=== PATIENT | female | born 1940 | race Caucasian/White ===

== ENCOUNTER 2019-11-06 09:07 | Outpatient (CLI) | payer MEDICARE, OTHER, SELFPAY ==
--- NOTE | 2019-11-06 20:35 | ONC FU_ITS ---
Dr. Montemayor Patient Follow-Up Note Patient: Jeimy Brownlee Unit #: [id number]: [id number] Dicatated By: Jonathan Montemayor M.D.Date of Visit:Nov 06, 2019 Onc Med Follow-up/Prog Note Chief Complaint: Polycythemia. 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 In February 2016 she was found on a routine followup to have a significantly elevated platelet count at 763,000. The remainder of her CBC was significant for normal hemoglobin at 12.9 g with hematocrit 40.2%. The red cell indices were in the low normal range. The white blood cell count was mildly elevated at 12,600 with the diff showing 68% segs, 21% lymphs, 6% monocytes, 4% eosinophils, and 1% basophils. I had seen her initially on 04/14/2016. At that time her CBC showed hemoglobin mildly elevated at 14.6 g with hematocrit 45%. The white blood cell count was 13,700 and the platelet count was 938,000. The red cell indices were at the lower limit of normal. Her chemistry studies did show evidence of iron deficiency with serum iron low at 20 mcg/dL and transferrin saturation 4.2%. The erythropoietin level was low at 5 mIU/mL. The JAK2 V617F mutation was positive at 28.4%. Overall, the findings were consistent with polycythemia rubra vera with iron deficiency. She then began treatment with hydroxyurea in April 2016. She had a good response, and she tolerated it well. I had last seen her for a follow-up visit in May 2017. At that point her blood counts remained adequately controlled and she appeared to be doing well clinically. For reasons unclear to me she was then lost to follow-up. Her other medical illnesses include hypertension, hyperlipidemia, GERD, degenerative arthritis, and osteoporosis. She also has chronic insomnia, and she has a history of superficial bladder cancer. She has a history of smoking 1 pack of cigarettes daily for 50 years. INTERIM HISTORY: She has been seen by Amelia Ferrara at the [facility] on 11/01/2019. Her CBC at that time showed significantly elevated hemoglobin at 18.4 g with hematocrit 56.8%. The white blood cell count was elevated at 17,000 and the platelet count was significantly elevated at 1,503,000. Comprehensive metabolic profile showed normal renal function with BUN 15 and creatinine 0.68 mg/dL. Bilirubin and liver enzymes were normal. She is seen now for a follow-up visit. She has very limited activity, as she spends most of her time just sitting in her chair. Her ECOG score is 3. Her appetite has not been good, and her weight is down 18 pounds by our scale. Her son indicates that she has been eating a little since she started taking pantoprazole. She has not had fever or night sweats. She has not had sore mouth, she has had a little sore spot on the left side of her throat. She does not complain of shortness of breath, cough, or chest pain. She is still smoking 1 pack of cigarettes daily. She does complain that her stomach short, and she says she has terrible constipation. Bladder function has been okay. She still follows with Dr. Zapata for her superficial bladder cancer. She has some arthritis pain in her hands, and she also reports having some numbness/tingling in her hands. Medications: Citalopram Hydrobromide 1 (20 mg) Tablet Oral daily, Lisinopril 1 (10 mg) Tablet Oral daily, Pantoprazole Sodium 1 (40 mg) Tablet, enteric coated Oral daily Allergies: No Known Allergies. Review of Systems: Constitutional - She is not doing any activity at home. She is mainly sitting in her chair. Her appetite is not good. She has lost weight. No fever, night sweats, or hot flashes. ECOG score is 3, ENMT - No sinus congestion/drainage. No mouth sores. She has a little bit of sore throat on the left side. No difficulty swallowing, Hematologic/Lymphatic - She bruises easily, Respiratory - No shortness of breath. No cough. No pleuritic pain or hemoptysis, Cardiovascular - No angina pain. No palpitations, Gastrointestinal - No nausea or vomiting. She has had burning in her stomach, and she recently started taking pantoprazole. She has chronic constipation. No blood in the stool or black stools, Genitourinary (F) - No dysuria or hematuria. No urinary frequency. No urgency or incontinence, Musculoskeletal - She has arthritis pain in her hands, Integumentary - No skin rash, Neurologic - She has occasional headache. No dizziness. She has numbness and tingling in her hands. No other focal neurologic symptoms, Psychiatric - She is taking citalopram for her anxiety and depression. No insomnia. Vital Signs: Performed on Nov 06, 2019 09:42 Height - 66.00 in Weight - 100.0 lbs (LOW) BSA - 1.49 sq.m BMI - 16.14 (LOW) Temperature - 99.0 F (HIGH) Pulse - 74 /min Respiration - 18 /min BP - 137/70 mm(hg) O2 Sat - 96 % Pain - 0 Physical Examination: Constitutional - She appears chronically ill, Eyes - Sclerae nonicteric. Conjunctivae clear, ENMT - No lesions noted in the oral cavity, Hematologic/Lymphatic - No cervical, clavicular, or axillary adenopathy, Respiratory - Lungs are clear with diminished air movement bilaterally, Cardiovascular - Heart rhythm is regular with some premature beats. There is no murmur, gallop, or rub noted, Abdomen - Soft. Liver and spleen are not enlarged. There is no abdominal mass or ascites noted and there is no inguinal adenopathy, Extremities - No edema, Neurologic - No focal neurologic deficits noted. Impression: 1. Patient with polycythemia rubra vera, JAK2 mutation positive. She had previously been doing well on treatment with hydroxyurea. 2. As of her follow-up visit in May 2017 she was doing well clinically, she was then lost to follow-up. 3. She has a history of superficial bladder cancer with multiple previous TURBT procedures and intravesical BCG. Her other medical illnesses include: 4. Hypertension. 5. Hyperlipidemia. 6. GERD. 7. Degenerative arthritis/degenerative disease of the spine. 8. Osteoporosis. 9. Chronic insomnia. 10. Depression. 11. Nicotine dependence (cigarettes). She has developed significantly elevated blood counts since she has been off treatment. She also has had a very significant decline in her performance status. It is uncertain to what extent that may be due to the polycythemia or to other factors, particularly to GERD/gastritis. Plan: She will be phlebotomized today. She will restart hydroxyurea 500 mg twice daily. Her blood counts will be monitored weekly. She will be scheduled for a followup visit in 4 weeks. Signed By: Jonathan Montemayor M.D. <<Signature on File>>
== END 2019-11-06 09:08 | disposition home or self-care (01) ==
LOC: ONCMED 09:14
PROVIDERS: PCP Nurse Practitioner Family; Visit Provider Internal Medicine Medical Oncology
DX: D45 Polycythemia vera (principal); I10 Essential (primary) hypertension; E78.5 Hyperlipidemia, unspecified; K21.9 Gastro-esophageal reflux disease without esophagitis; M19.90 Unspecified osteoarthritis, unspecified site; M81.0 Age-related osteoporosis without current pathological fracture; F51.04 Psychophysiologic insomnia; F41.8 Other specified anxiety disorders; F17.210 Nicotine dependence, cigarettes, uncomplicated; Z85.51 Personal history of malignant neoplasm of bladder; Z79.899 Other long term (current) drug therapy
CPT/HCPCS: 99195; 99214

== ENCOUNTER 2019-12-05 08:02 | Outpatient (CLI) | payer MEDICARE, OTHER, SELFPAY ==
[2019-12-05 09:04] LABS: Alanine Aminotransferase 12 U/L (0-33); Alkaline Phosphatase 91 IU/L (35-105); Anion Gap 14.4 (5-19); Aspartate Amino Transferase 23 U/L (0-32); Blood Urea Nitrogen 14 mg/dL (8-23); Calcium 9.2 mg/dL (8.5-10.5); Carbon Dioxide 25 mmol/L (22-29); Chloride 106 mmol/L (98-107); Globulin 3.3 g/dL (1.3-4.6); Glucose 109 mg/dL (65-115); Lactate Dehydrogenase 191 U/L (135-214); Osmolality Calculated 289 mOsm/kg (285-295); Potassium 4.4 mmol/L (3.5-5.1); Sodium 141 mmol/L (136-145); Total Bilirubin 0.2 mg/dL (0.15-1.2); Total Protein 7.3 g/dL (6.6-8.7)
--- NOTE | 2019-12-06 06:57 | ONC FU_ITS ---
Dr. Montemayor Patient Follow-Up Note Patient: Jeimy Brownlee Unit #: [id number]: 1940 Dicatated By: Jonathan Montemayor M.D.Date of Visit:Dec 05, 2019 Onc Med Follow-up/Prog Note Chief Complaint: Polycythemia. 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 In February 2016 she was found on a routine followup to have a significantly elevated platelet count at 763,000. The remainder of her CBC was significant for normal hemoglobin at 12.9 g with hematocrit 40.2%. The red cell indices were in the low normal range. The white blood cell count was mildly elevated at 12,600 with the diff showing 68% segs, 21% lymphs, 6% monocytes, 4% eosinophils, and 1% basophils. I had seen her initially on 04/14/2016. At that time her CBC showed hemoglobin mildly elevated at 14.6 g with hematocrit 45%. The white blood cell count was 13,700 and the platelet count was 938,000. The red cell indices were at the lower limit of normal. Her chemistry studies did show evidence of iron deficiency with serum iron low at 20 mcg/dL and transferrin saturation 4.2%. The erythropoietin level was low at 5 mIU/mL. The JAK2 V617F mutation was positive at 28.4%. Overall, the findings were consistent with polycythemia rubra vera with iron deficiency. She then began treatment with hydroxyurea in April 2016. She had a good response, and she tolerated it well. I had last seen her for a follow-up visit in May 2017. At that point her blood counts remained adequately controlled and she appeared to be doing well clinically. For reasons unclear to me she was then lost to follow-up. Her other medical illnesses include hypertension, hyperlipidemia, GERD, degenerative arthritis, and osteoporosis. She also has chronic insomnia, and she has a history of superficial bladder cancer. She has a history of smoking 1 pack of cigarettes daily for 50 years. INTERIM HISTORY: She was seen by Amelia Ferrara at the [facility] on 11/01/2019. Her CBC at that time showed significantly elevated hemoglobin at 18.4 g with hematocrit 56.8%. The white blood cell count was elevated at 17,000 and the platelet count was significantly elevated at 1,503,000. Comprehensive metabolic profile showed normal renal function with BUN 15 and creatinine 0.68 mg/dL. Bilirubin and liver enzymes were normal. I have been seen her for a follow-up visit on 11/06/2019. She was phlebotomized, and she then restarted hydroxyurea at 500 mg twice daily. Her repeat CBC yesterday showed hemoglobin down somewhat, though still elevated, at 16.3 g with hematocrit 51.2%. The white blood cell count was 10,600 and the platelet count was 1,109,000. She did have another phlebotomy. She is seen for a follow-up visit. She has been feeling pretty good. She still has limited activity tolerance, but it has improved somewhat. Her ECOG score is 2. She still does not have much appetite, and her weight is down another 3 pounds. She does not have fever or night sweats. She has had no mouth sores. She has no shortness of breath, cough, or chest pain. She has had a little nausea, and she has had some constipation. She has no complaints. She has joint pain, mainly in her hands and right knee. She has no focal neurologic symptoms. Medications: Citalopram Hydrobromide 1 (20 mg) Tablet Oral daily, Hydroxyurea 1 Capsule (of 500 mg) Oral b.i.d., Lisinopril 1 (10 mg) Tablet Oral daily, Pantoprazole Sodium 1 (40 mg) Tablet, enteric coated Oral daily Allergies: No Known Allergies. Review of Systems: Constitutional - She has been feeling pretty good. She still has limited activity, but it is improving. She does not have much appetite. Her weight is down another 3 pounds. She does not have fever or night sweats. ECOG score is 2, ENMT - No sinus congestion/drainage. No mouth sores. No sore throat or difficulty swallowing, Hematologic/Lymphatic - No abnormal bruising or bleeding, Respiratory - No shortness of breath. No cough. No pleuritic pain or hemoptysis, Cardiovascular - No angina pain. No palpitations, Gastrointestinal - She has had a little bit of nausea, but no vomiting. No heartburn or acid reflux. She has had some constipation. No blood in the stool or black stools, Genitourinary (F) - No dysuria or hematuria. No urinary frequency. No urgency or incontinence, Musculoskeletal - She has some joint pain, mainly in her hands and right knee, Integumentary - No skin rash, Neurologic - No headache. She has occasional orthostatic lightheadedness. No numbness or tingling. No other focal neurologic symptoms, Psychiatric - She has some anxiety/depression. No insomnia. Vital Signs: Performed on Dec 05, 2019 10:06 Height - 66.00 in Weight - 96.4 lbs (LOW) BSA - 1.47 sq.m BMI - 15.56 (LOW) Temperature - 97.8 F (LOW) Pulse - 76 /min Respiration - 18 /min BP - 157/73 mm(hg) (HIGH) O2 Sat - 97 % Pain - 0 Physical Examination: Constitutional - She appears chronically ill, Eyes - Sclerae nonicteric. Conjunctivae clear, ENMT - No lesions noted in the oral cavity, Hematologic/Lymphatic - No cervical, clavicular, or axillary adenopathy, Respiratory - Lungs are clear with diminished air movement bilaterally, Cardiovascular - Heart rhythm is regular. There is no murmur, gallop, or rub noted, Abdomen - Thin but soft. Liver and spleen are not enlarged. There is no abdominal mass or ascites noted and there is no inguinal adenopathy, Extremities - No edema, Neurologic - No focal neurologic deficits noted. Lab/Imaging: Test performed on Dec 05, 2019 08:16 LDH (Total) 191 U/L Sodium 141 mmol/L Potassium 4.4 mmol/L Chloride 106 mmol/L CO2 25 mmol/L Anion Gap 14.4 BUN 14 mg/dL Creatinine 0.6 mg/dL Cr Clearance (Est) 52.48 mL/min Glucose 109 mg/dL Calcium 9.2 mg/dL Protein, Total 7.3 g/dL Albumin 4.0 g/dL Globulin 3.3 g/dL Bilirubin, Total 0.2 mg/dL ALT (SGPT) 12 U/L AST (SGOT) 23 U/L Alkaline Phosphatase 91 IU/L Test performed on Dec 04, 2019 21:18 WBC 10.6 10^9/L RBC 6.05 10^12/L HGB 16.3 g/dL HCT 51.2 % MCV 84.6 fl MCH 26.9 pg MCHC 31.8 g/dL RDW 25.5 % Platelet Count 1109 10^9/L MPV 9.4 fL Neutrophils (Gran) 6.56 10^9/L Lymphocytes 2.84 10^9/L Monocytes .75 10^9/L Eosinophils .22 10^9/L Basophils .15 10^9/L Manual Lymphocytes 26.8 % Manual Monocytes 7.1 % Manual Eosinophils 2.1 % Manual Basophils 1.4 % Impression: 1. Patient with polycythemia rubra vera, JAK2 mutation positive. She had previously been doing well on treatment with hydroxyurea. 2. As of her follow-up visit in May 2017 she was doing well clinically, but she was then lost to follow-up, and she opted to stop her treatment. 3. She has a history of superficial bladder cancer with multiple previous TURBT procedures and intravesical BCG. Her other medical illnesses include: 4. Hypertension. 5. Hyperlipidemia. 6. GERD. 7. Degenerative arthritis/degenerative disease of the spine. 8. Osteoporosis. 9. Chronic insomnia. 10. Depression. 11. Nicotine dependence (cigarettes). She developed significantly elevated blood counts after stopping her treatment. She also had a very significant decline in her performance status. As of October 2019 her blood counts had become significantly elevated. Following her visit on 11/06/2019 she restarted phlebotomies, and she also restarted hydroxyurea at 500 mg twice daily. Since then she has had some improvement in her blood counts and in her clinical status, though she still has limited activity tolerance and she continues to have anorexia/weight loss. Plan: She will continue hydroxyurea 500 mg twice daily. Blood counts will be monitored every 2 weeks, and she will be phlebotomized again as needed. I will see her for a follow-up visit in 4 weeks. In the meantime, she is encouraged to supplement her caloric intake with at least 2 Ensures daily. Signed By: Jonathan Montemayor M.D. <<Signature on File>>
== END 2019-12-05 08:03 | disposition home or self-care (01) ==
LOC: ONCMED 08:10
PROVIDERS: PCP Nurse Practitioner Family; Visit Provider Internal Medicine Medical Oncology
DX: D45 Polycythemia vera (principal); D47.3 Essential (hemorrhagic) thrombocythemia; F51.04 Psychophysiologic insomnia; F32.9 Major depressive disorder, single episode, unspecified; K21.9 Gastro-esophageal reflux disease without esophagitis; E78.5 Hyperlipidemia, unspecified; I10 Essential (primary) hypertension; M81.0 Age-related osteoporosis without current pathological fracture; M47.9 Spondylosis, unspecified; F17.210 Nicotine dependence, cigarettes, uncomplicated
CPT/HCPCS: 80053; 83615; 99214

== ENCOUNTER 2020-01-02 10:28 | Outpatient (CLI) | payer MEDICARE, OTHER, SELFPAY ==
--- NOTE | 2020-01-05 14:18 | ONC FU_ITS ---
Dr. Montemayor Patient Follow-Up Note Patient: Jeimy Brownlee Unit #: [id number]: 1940 Dicatated By: Jonathan Montemayor M.D.Date of Visit:Jan 02, 2020 Onc Med Follow-up/Prog Note Chief Complaint: Polycythemia. 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 In February 2016 she was found on a routine followup to have a significantly elevated platelet count at 763,000. The remainder of her CBC was significant for normal hemoglobin at 12.9 g with hematocrit 40.2%. The red cell indices were in the low normal range. The white blood cell count was mildly elevated at 12,600 with the diff showing 68% segs, 21% lymphs, 6% monocytes, 4% eosinophils, and 1% basophils. I had seen her initially on 04/14/2016. At that time her CBC showed hemoglobin mildly elevated at 14.6 g with hematocrit 45%. The white blood cell count was 13,700 and the platelet count was 938,000. The red cell indices were at the lower limit of normal. Her chemistry studies did show evidence of iron deficiency with serum iron low at 20 mcg/dL and transferrin saturation 4.2%. The erythropoietin level was low at 5 mIU/mL. The JAK2 V617F mutation was positive at 28.4%. Overall, the findings were consistent with polycythemia rubra vera with iron deficiency. She then began treatment with hydroxyurea in April 2016. She had a good response, and she tolerated it well. I had last seen her for a follow-up visit in May 2017. At that point her blood counts remained adequately controlled and she appeared to be doing well clinically. For reasons unclear to me she was then lost to follow-up. Her other medical illnesses include hypertension, hyperlipidemia, GERD, degenerative arthritis, and osteoporosis. She also has chronic insomnia, and she has a history of superficial bladder cancer. She has a history of smoking 1 pack of cigarettes daily for 50 years. INTERIM HISTORY: She was seen by Amelia Ferrara at the [facility] on 11/01/2019. Her CBC at that time showed significantly elevated hemoglobin at 18.4 g with hematocrit 56.8%. The white blood cell count was elevated at 17,000 and the platelet count was significantly elevated at 1,503,000. Comprehensive metabolic profile showed normal renal function with BUN 15 and creatinine 0.68 mg/dL. Bilirubin and liver enzymes were normal. I had seen on 11/06/2019. She was phlebotomized, and she then restarted hydroxyurea at 500 mg twice daily. Her repeat CBC on 12/04/2019 showed hemoglobin down somewhat, though still elevated, at 16.3 g with hematocrit 51.2%. The white blood cell count was 10,600 and the platelet count was 1,109,000. She did have another phlebotomy. She continued hydroxyurea 500 mg bid. She is seen for a follow-up visit. She is feeling much better generally. She has improved energy and activity tolerance, and she also is eating more now. Her ECOG score is 1. She does not have fever or night sweats. She has had no mouth sores. She has no shortness of breath, cough, or chest pain. She currently has no GI or complaints. She does have some joint pain, mainly in the hands. She has no focal neurologic symptoms. Medications: Citalopram Hydrobromide 1 (20 mg) Tablet Oral daily, Hydroxyurea 1 Capsule (of 500 mg) Oral b.i.d., Lisinopril 1 (10 mg) Tablet Oral daily, Pantoprazole Sodium 1 (40 mg) Tablet, enteric coated Oral daily Allergies: No Known Allergies. Review of Systems: Constitutional - Her energy is better. Appetite also has improved. No fever, night sweats, or hot flashes. ECOG score is 1, ENMT - No sinus congestion/drainage. No mouth sores. No sore throat or difficulty swallowing, Hematologic/Lymphatic - No abnormal bruising or bleeding, Respiratory - No shortness of breath. No cough. No pleuritic pain or hemoptysis, Cardiovascular - No angina pain. No palpitations, Gastrointestinal - No nausea or vomiting. Her acid reflux is adequately managed. No diarrhea or constipation. No blood in the stool or black stools, Genitourinary (F) - No dysuria or hematuria. No urinary frequency. No urgency or incontinence, Musculoskeletal - She has joint pain, mainly in the hands, Integumentary - No skin rash, Neurologic - No headache. She occasionally has dizziness. No numbness or tingling. No other focal neurologic symptoms, Psychiatric - No anxiety or depression. No insomnia. Vital Signs: Performed on Jan 02, 2020 10:43 Height - 66.00 in Weight - 98.6 lbs (HIGH) BSA - 1.48 sq.m BMI - 15.91 (LOW) Temperature - 97.9 F (LOW) Pulse - 83 /min Respiration - 16 /min BP - 110/58 mm(hg) O2 Sat - 98 % Pain - 0 Physical Examination: Constitutional - She looks better, Eyes - Sclerae nonicteric. Conjunctivae clear, ENMT - No lesions noted in the oral cavity, Hematologic/Lymphatic - No cervical, clavicular, or axillary adenopathy, Respiratory - Lungs are clear with diminished air movement bilaterally, Cardiovascular - Heart rhythm is regular. There is no murmur, gallop, or rub noted, Abdomen - Soft. Liver and spleen are not enlarged. There is no abdominal mass or ascites noted and there is no inguinal adenopathy, Extremities - No edema, Neurologic - No focal neurologic deficits noted. Lab/Imaging: Test performed on Jan 01, 2020 13:02 WBC 7.9 10^9/L RBC 4.97 10^12/L HGB 14.6 g/dL HCT 44.0 % MCV 88.5 fl MCH 29.4 pg MCHC 33.2 g/dL Platelet Count 749 10^9/L MPV 9.6 fL Neutrophils (Gran) 5.29 10^9/L Lymphocytes 2.03 10^9/L Monocytes 0.45 10^9/L Eosinophils 0.07 10^9/L Basophils 0.04 10^9/L Manual Lymphocytes 25.7 % Manual Monocytes 5.7 % Manual Eosinophils 0.9 % Manual Basophils 0.5 % Impression: 1. Patient with polycythemia rubra vera, JAK2 mutation positive. She had previously been doing well on treatment with hydroxyurea. 2. As of her follow-up visit in May 2017 she was doing well clinically, but she was then lost to follow-up, and she opted to stop her treatment. 3. She has a history of superficial bladder cancer with multiple previous TURBT procedures and intravesical BCG. Her other medical illnesses include: 4. Hypertension. 5. Hyperlipidemia. 6. GERD. 7. Degenerative arthritis/degenerative disease of the spine. 8. Osteoporosis. 9. Chronic insomnia. 10. Depression. 11. Nicotine dependence (cigarettes). She developed significantly elevated blood counts after stopping her treatment. She also had a very significant decline in her performance status. As of October 2019 her blood counts had become significantly elevated. Following her visit on 11/06/2019 she was phlebotomized, and she also restarted hydroxyurea at 500 mg twice daily. During follow-up her blood counts had decreased gradually, though she did require phlebotomy again on 12/05/2019. At this point she has feeling much better. Her platelet count is still mildly elevated, though significantly improved. Her hematocrit is slightly above target, which I think is acceptable given her underlying COPD. Plan: She will continue hydroxyurea 500 mg twice daily. For now I will continue to monitor her blood count every 2 weeks, and she will be phlebotomized again as needed. I will tentatively plan a follow-up visit in 3 months. Signed By: Jonathan Montemayor M.D. <<Signature on File>>
== END 2020-01-02 10:29 | disposition home or self-care (01) ==
LOC: ONCMED 10:34
PROVIDERS: PCP Nurse Practitioner Family; Visit Provider Internal Medicine Medical Oncology
DX: D45 Polycythemia vera (principal); I10 Essential (primary) hypertension; E78.5 Hyperlipidemia, unspecified; K21.9 Gastro-esophageal reflux disease without esophagitis; M19.90 Unspecified osteoarthritis, unspecified site; M81.0 Age-related osteoporosis without current pathological fracture; F51.04 Psychophysiologic insomnia; Z85.51 Personal history of malignant neoplasm of bladder; F17.210 Nicotine dependence, cigarettes, uncomplicated; Z79.899 Other long term (current) drug therapy
CPT/HCPCS: 99214

== ENCOUNTER 2020-04-09 13:02 | Outpatient (CLI) | payer MEDICARE, OTHER, SELFPAY ==
--- NOTE | 2020-04-12 12:56 | ONC FU_ITS ---
Dr. Montemayor Patient Follow-Up Note Patient: Jeimy Brownlee Unit #: [id number]: 1940 Dicatated By: Jonathan Montemayor M.D.Date of Visit:Apr 09, 2020 Onc Med Follow-up/Prog Note Chief Complaint: Polycythemia. 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 In February 2016 she was found on a routine followup to have a significantly elevated platelet count at 763,000. The remainder of her CBC was significant for normal hemoglobin at 12.9 g with hematocrit 40.2%. The red cell indices were in the low normal range. The white blood cell count was mildly elevated at 12,600 with the diff showing 68% segs, 21% lymphs, 6% monocytes, 4% eosinophils, and 1% basophils. I had seen her initially on 04/14/2016. At that time her CBC showed hemoglobin mildly elevated at 14.6 g with hematocrit 45%. The white blood cell count was 13,700 and the platelet count was 938,000. The red cell indices were at the lower limit of normal. Her chemistry studies did show evidence of iron deficiency with serum iron low at 20 mcg/dL and transferrin saturation 4.2%. The erythropoietin level was low at 5 mIU/mL. The JAK2 V617F mutation was positive at 28.4%. Overall, the findings were consistent with polycythemia rubra vera with iron deficiency. She then began treatment with hydroxyurea in April 2016. She had a good response, and she tolerated it well. I had last seen her for a follow-up visit in May 2017. At that point her blood counts remained adequately controlled and she appeared to be doing well clinically. For reasons unclear to me she was then lost to follow-up. Her other medical illnesses include hypertension, hyperlipidemia, GERD, degenerative arthritis, and osteoporosis. She also has chronic insomnia, and she has a history of superficial bladder cancer. She has a history of smoking 1 pack of cigarettes daily for 50 years. INTERIM HISTORY: She was seen by Amelia Ferrara at the [facility] on 11/01/2019. Her CBC at that time showed significantly elevated hemoglobin at 18.4 g with hematocrit 56.8%. The white blood cell count was elevated at 17,000 and the platelet count was significantly elevated at 1,503,000. Comprehensive metabolic profile showed normal renal function with BUN 15 and creatinine 0.68 mg/dL. Bilirubin and liver enzymes were normal. I had seen on 11/06/2019. She was phlebotomized, and she then restarted hydroxyurea at 500 mg twice daily. Her repeat CBC on 12/04/2019 showed hemoglobin down somewhat, though still elevated, at 16.3 g with hematocrit 51.2%. The white blood cell count was 10,600 and the platelet count was 1,109,000. She did have another phlebotomy. She continued hydroxyurea 500 mg bid. She is seen for a follow-up visit. She has been feeling pretty good generally. She still has fatigue, but she is able to do housework now. ECOG score is 1. She has good appetite. She has no fever or night sweats. She has had no mouth sores. She has no shortness of breath, cough, or chest pain. She colonel he has no GI or complaints. She has been having constipation, but that has improved now. She has no significant joint or bone pain. She has no focal neurologic symptoms. Medications: Citalopram Hydrobromide 1 (20 mg) Tablet Oral daily, Hydroxyurea 1 Capsule (of 500 mg) Oral b.i.d., Lisinopril 1 (10 mg) Tablet Oral daily, Pantoprazole Sodium 1 (40 mg) Tablet, enteric coated Oral daily Allergies: No Known Allergies. Review of Systems: Constitutional - She has fatigue, but she is able to do some housework. Appetite is good and weight is stable. No fever, night sweats, or hot flashes. ECOG score is 1, ENMT - She has sinus congestion/drainage. No mouth sores. No sore throat or difficulty swallowing, Hematologic/Lymphatic - She has had some bruising, Respiratory - No shortness of breath. No cough. No pleuritic pain or hemoptysis, Cardiovascular - No angina pain. No palpitations, Gastrointestinal - No nausea or vomiting. No heartburn or acid reflux. She was having constipation, but that has improved. No blood in the stool or black stools, Genitourinary (F) - No dysuria or hematuria. No urinary frequency. No urgency or incontinence, Musculoskeletal - No joint or bone pain, Integumentary - No skin rash, Neurologic - No headache or dizziness. No numbness or tingling. No other focal neurologic symptoms, Psychiatric - No anxiety or depression. No insomnia. Vital Signs: Performed on Apr 09, 2020 13:20 Height - 66.00 in Weight - 97.2 lbs (LOW) BSA - 1.47 sq.m BMI - 15.69 (LOW) Temperature - 98.7 F Pulse - 94 /min Respiration - 20 /min BP - 136/69 mm(hg) O2 Sat - 98 % Pain - 0 Physical Examination: Constitutional - She looks pretty good generally, Eyes - Sclerae nonicteric. Conjunctivae clear, ENMT - No lesions noted in the oral cavity, Hematologic/Lymphatic - No cervical, clavicular, or axillary adenopathy, Respiratory - Lungs are clear with diminished air movement bilaterally, Cardiovascular - Heart rhythm is regular. There is no murmur, gallop, or rub noted, Abdomen - Soft. Liver and spleen are not enlarged. There is no abdominal mass or ascites noted and there is no inguinal adenopathy, Extremities - No edema, Neurologic - No focal neurologic deficits noted. Lab/Imaging: Test performed on Apr 08, 2020 19:00 Glucose 109 mg/dL LDH, Total 225 IU/L BUN 12 mg/dL Creatinine 0.56 mg/dL Cr Clearance (Est) 55.77 mL/min Sodium 137 mmol/L Potassium 3.9 mmol/L Chloride 105 mmol/L CO2 24.9 mmol/L Calcium 9.4 mg/dL Protein, Total 7.4 g/dL Albumin 3.2 g/dL A/G Ratio 0.8 Absolute Value Bilirubin, Total 0.4 mg/dL Alkaline Phosphatase 120 IU/L AST (SGOT) 19 IU/L ALT (SGPT) 13 IU/L WBC 7.0 10^9/L RBC 3.02 10^12/L HGB 12.4 g/dL HCT 38.4 % MCV 127.2 fl MCH 41.1 pg MCHC 32.3 g/dL RDW 68.8 % Platelet Count 528 10^9/L MPV 10.1 fL Neutrophils (Gran) 4.42 10^9/L Lymphocytes 2.01 10^9/L Monocytes 0.43 10^9/L Eosinophils 0.04 10^9/L Basophils 0.03 10^9/L Manual Lymphocytes 28.9 % Manual Monocytes 6.2 % Manual Eosinophils 0.6 % Manual Basophils 0.4 % Impression: 1. Patient with polycythemia rubra vera, JAK2 mutation positive. She had previously been doing well on treatment with hydroxyurea. 2. As of her follow-up visit in May 2017 she was doing well clinically, but she was then lost to follow-up, and she opted to stop her treatment. 3. She has a history of superficial bladder cancer with multiple previous TURBT procedures and intravesical BCG. Her other medical illnesses include: 4. Hypertension. 5. Hyperlipidemia. 6. GERD. 7. Degenerative arthritis/degenerative disease of the spine. 8. Osteoporosis. 9. Chronic insomnia. 10. Depression. 11. Nicotine dependence (cigarettes). She developed significantly elevated blood counts after stopping her treatment. She also had a very significant decline in her performance status. As of October 2019 her blood counts had become significantly elevated. Following her visit on 11/06/2019 she was phlebotomized, and she also restarted hydroxyurea at 500 mg twice daily. During follow-up her blood counts had decreased gradually, though she did require phlebotomy again on 12/05/2019. With her hydroxyurea continued at 500 mg twice daily her platelet count has now stabilized at a mildly elevated level with her white blood cell count normal and with her hemoglobin/hematocrit levels within target range. Her overall clinical status has improved significantly. Plan: She will continue hydroxyurea 500 mg twice daily. She was scheduled for a repeat CBC in 6 weeks and for a follow-up visit in 3 months. Signed By: Jonathan Montemayor M.D. <<Signature on File>>
== END 2020-04-09 13:03 | disposition home or self-care (01) ==
LOC: ONCMED 13:05
PROVIDERS: PCP Nurse Practitioner Family; Visit Provider Internal Medicine Medical Oncology
DX: D45 Polycythemia vera (principal); D47.3 Essential (hemorrhagic) thrombocythemia; I10 Essential (primary) hypertension; E78.5 Hyperlipidemia, unspecified; K21.9 Gastro-esophageal reflux disease without esophagitis; M47.9 Spondylosis, unspecified; M81.0 Age-related osteoporosis without current pathological fracture; G47.00 Insomnia, unspecified; F32.9 Major depressive disorder, single episode, unspecified; F17.210 Nicotine dependence, cigarettes, uncomplicated
CPT/HCPCS: 99214

== ENCOUNTER 2020-07-15 09:25 | Outpatient (CLI) | payer MEDICARE, OTHER, SELFPAY ==
--- NOTE | 2020-07-18 14:40 | ONC FU_ITS ---
Dr. Montemayor Patient Follow-Up Note Patient: Jeimy Brownlee Unit #: [id number]: 1940 Dicatated By: Jonathan Montemayor M.D.Date of Visit:Jul 15, 2020 Onc Med Follow-up/Prog Note Chief Complaint: Polycythemia. 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 In February 2016 she was found on a routine followup to have a significantly elevated platelet count at 763,000. The remainder of her CBC was significant for normal hemoglobin at 12.9 g with hematocrit 40.2%. The red cell indices were in the low normal range. The white blood cell count was mildly elevated at 12,600 with the diff showing 68% segs, 21% lymphs, 6% monocytes, 4% eosinophils, and 1% basophils. I had seen her initially on 04/14/2016. At that time her CBC showed hemoglobin mildly elevated at 14.6 g with hematocrit 45%. The white blood cell count was 13,700 and the platelet count was 938,000. The red cell indices were at the lower limit of normal. Her chemistry studies did show evidence of iron deficiency with serum iron low at 20 mcg/dL and transferrin saturation 4.2%. The erythropoietin level was low at 5 mIU/mL. The JAK2 V617F mutation was positive at 28.4%. Overall, the findings were consistent with polycythemia rubra vera with iron deficiency. She then began treatment with hydroxyurea in April 2016. She had a good response, and she tolerated it well. I had last seen her for a follow-up visit in May 2017. At that point her blood counts remained adequately controlled and she appeared to be doing well clinically. For reasons unclear to me she was then lost to follow-up. Her other medical illnesses include hypertension, hyperlipidemia, GERD, degenerative arthritis, and osteoporosis. She also has chronic insomnia, and she has a history of superficial bladder cancer. She has a history of smoking 1 pack of cigarettes daily for 50 years. INTERIM HISTORY: She was seen by Amelia Ferrara at the [facility] on 11/01/2019. Her CBC at that time showed significantly elevated hemoglobin at 18.4 g with hematocrit 56.8%. The white blood cell count was elevated at 17,000 and the platelet count was significantly elevated at 1,503,000. Comprehensive metabolic profile showed normal renal function with BUN 15 and creatinine 0.68 mg/dL. Bilirubin and liver enzymes were normal. I had seen on 11/06/2019. She was phlebotomized, and she then restarted hydroxyurea at 500 mg twice daily. Her repeat CBC on 12/04/2019 showed hemoglobin down somewhat, though still elevated, at 16.3 g with hematocrit 51.2%. The white blood cell count was 10,600 and the platelet count was 1,109,000. She did have another phlebotomy. She continued hydroxyurea 500 mg bid. As of her follow-up visit in March 2020 her platelet count was just mildly elevated, and she continued her same treatment. She is seen for a follow-up visit. She has been feeling pretty good generally, though her energy is just so-so. She is doing housework. ECOG score is 1. She has good appetite. She has no fever or night sweats. She has sinus drainage. She has not had mouth sores. She does not complain of shortness of breath, cough, or chest pain. She does have some constipation, which she manages with milk of magnesia as needed. She has no other GI or complaints. She has no significant joint or bone pain. She does not complain of headache or dizziness. She has no focal neurologic symptoms. Medications: Citalopram Hydrobromide 1 (20 mg) Tablet Oral daily, Hydroxyurea 1 Capsule (of 500 mg) Oral b.i.d., Lisinopril 1 (10 mg) Tablet Oral daily, Pantoprazole Sodium 1 (40 mg) Tablet, enteric coated Oral daily Allergies: No Known Allergies. Vital Signs: Performed on Jul 15, 2020 09:44 Height - 66.00 in Weight - 95.6 lbs (LOW) BSA - 1.46 sq.m BMI - 15.43 (LOW) Temperature - 99 F (HIGH) Pulse - 106 /min (HIGH) Respiration - 18 /min BP - 143/82 mm(hg) (HIGH) O2 Sat - 95 % (LOW) Pain - 0 Fatigue - 0 Physical Examination: Constitutional - She looks pretty good generally, Eyes - Sclerae nonicteric. Conjunctivae clear, ENMT - No lesions noted in the oral cavity, Hematologic/Lymphatic - No cervical, clavicular, or axillary adenopathy, Respiratory - Lungs are clear with diminished air movement bilaterally, Cardiovascular - Heart rhythm is regular. There is no murmur, gallop, or rub noted, Abdomen - Soft. Liver and spleen are not enlarged. There is no abdominal mass or ascites noted and there is no inguinal adenopathy, Extremities - No edema, Neurologic - No focal neurologic deficits noted. Lab/Imaging: Test performed on Jul 08, 2020 14:00 Glucose 105 mg/dL LDH, Total 280 IU/L BUN 17 mg/dL Creatinine .61 mg/dL Cr Clearance (Est) 51.20 mL/min Sodium 139 mmol/L Potassium 4.1 mmol/L Chloride 106 mmol/L CO2 24.7 mmol/L Calcium 9.8 mg/dL Protein, Total 7.4 g/dL Albumin 3.2 g/dL Globulin 4.2 g/dL Bilirubin, Total .3 mg/dL Alkaline Phosphatase 115 IU/L AST (SGOT) 23 IU/L ALT (SGPT) 21 IU/L WBC 13.0 10^9/L RBC 4.10 10^12/L HGB 14.3 g/dL HCT 44.6 % MCV 108.8 fl MCH 34.9 pg MCHC 32.1 g/dL RDW 14.2 % Platelet Count 756 10^9/L MPV 10.6 fL Neutrophils (Gran) 8.79 10^9/L Lymphocytes 2.78 10^9/L Monocytes 1.13 10^9/L Eosinophils .19 10^9/L Basophils .06 10^9/L Manual Lymphocytes 21.4 % Manual Monocytes 8.7 % Manual Eosinophils 1.5 % Manual Basophils 0.5 % Problem List: 1. Polycythemia rubra vera, JAK2 mutation positive. 2. She has a history of superficial bladder cancer with multiple previous TURBT procedures and intravesical BCG. 3. Hypertension. 4. Hyperlipidemia. 5. GERD. 6. Degenerative arthritis/degenerative disease of the spine. 7. Osteoporosis. 8. Chronic insomnia. 9. Depression. 10. Nicotine dependence (cigarettes). Problems Addressed with this Encounter and Plan: Patient with polycythemia rubra vera, JAK2 mutation positive, initially diagnosed in February 2016. She responded well to treatment with hydroxyurea, but she stopped taking it following her visit in May 2017. As of October 2019 her blood counts had become significantly elevated. She also had a very significant decline in her performance status. At that point she was phlebotomized and she also restarted hydroxyurea at 500 mg twice daily. During follow-up her blood counts had come down gradually and by March 2020 she had just a slightly elevated platelet count. However, since then her hemoglobin/hematocrit levels have become mildly elevated again and there has been increase in both the white blood cell count and the platelet count. Her clinical status, though, remained stable. With the increase in her blood counts, I will have her increase her daily hydroxyurea dosage to 1500 mg on Mondays, Wednesdays, and Fridays. It will be continued at 1000 mg daily all other days. Her blood count will be rechecked monthly. I will see her again in 3 months. Signed By: Jonathan Montemayor M.D. <<Signature on File>>
== END 2020-07-15 09:26 | disposition home or self-care (01) ==
LOC: ONCMED 09:30
PROVIDERS: PCP Nurse Practitioner Family; Visit Provider Internal Medicine Medical Oncology
DX: D45 Polycythemia vera (principal); Z85.51 Personal history of malignant neoplasm of bladder; Z79.899 Other long term (current) drug therapy
CPT/HCPCS: 99214

== ENCOUNTER 2020-12-11 13:52 | Outpatient (CLI) | payer MEDICARE, OTHER, SELFPAY ==
[2020-12-11 15:40] LABS: Basophils % 0.4 %; Hematocrit 31.3 % (37.0-47.0); Hemoglobin 10.6 g/dL (11.5-15.3); Lymphocytes # 1.4 10^3/uL (0.8-4.8); Lymphocytes % 26.5 %; Mean Corpuscular HGB Conc 33.9 g/dL (30.0-36.0); Mean Corpuscular Hemoglobin 43.8 pg (28.0-34.0); Mean Corpuscular Volume 129.3 fl (81-99); Mean Platelet Volume 9.7 fL (7.4-10.4); Monocytes # 0.4 10^3/uL (0.2-0.9); Monocytes % 7.5 %; Neutrophils # 3.37 10^3/uL (1.8-7.7); Neutrophils % 64.8 %; Nucleated Red Blood Cells % 0.4 %; Platelet Count 343 10^3/cmm (130-400); Red Blood Count 2.42 10^6/uL (4.1-5.3); Red Cell Distribution Width 18.1 % (12.1-15.1); White Blood Count 5.2 10^3/uL (4.0-10.0)
[2020-12-11 16:24] LABS: Erythrocyte Sedimentation Rate 118 mm/hr (0-15)
[2020-12-11 16:55] LABS: Alanine Aminotransferase 8 U/L (0-33); Albumin Level 3.3 g/dL (3.5-5.2); Alkaline Phosphatase 112 IU/L (35-105); Anion Gap 15.9 (5-19); Aspartate Amino Transferase 16 U/L (0-32); Blood Urea Nitrogen 15 mg/dL (8-23); Calcium 9.3 mg/dL (8.5-10.5); Carbon Dioxide 26 mmol/L (22-29); Chloride 97 mmol/L (98-107); Globulin 3.8 g/dL (1.3-4.6); Glucose 94 mg/dL (65-115); Lactate Dehydrogenase 177 U/L (135-214); Osmolality Calculated 281 mOsm/kg (285-295); Potassium 3.9 mmol/L (3.5-5.1); Sodium 135 mmol/L (136-145); Thyroid Stimulating Hormone 2.24 uIU/mL (0.27-4.20); Total Bilirubin 0.2 mg/dL (0.15-1.2); Total Protein 7.1 g/dL (6.6-8.7); Uric Acid 2.7 mg/dL (2.4-5.7)
--- NOTE | 2020-12-11 16:59 | XR_ITS ---
WS: [id number] Right foot, 3 views, 12/11/2020 Clinical Data: POLYCYTHEMIA, PAIN IN ANKLES AND FEET Comparison: None. Findings: No fractures or dislocations are seen. No bone destruction or erosion is noted. There is fusion of th e right second PIP joint. The soft tissues are normal. XR/XR foot RT min 3V* [id number] Impression: Negative right foot.
--- NOTE | 2020-12-11 16:59 | XR_ITS ---
WS: [id number] Left ankle, 3 views, 12/11/2020 Clinical Data: POLYCYTHEMIA;PAIN IN ANKLES AND FEET Comparison: None. Findings: No fractures or dislocations are seen. The ankle mortise is normal. The talus and calcaneus are unrem arkable. No soft tissue swelling over the medial or lateral malleolus is seen. There is a small plantar spur. XR/XR ankle LT min 3V* [id number] Impression: Negative left ankle.
--- NOTE | 2020-12-11 16:59 | XR_ITS ---
WS: [id number] Left foot, 3 views, 12/11/2020 Clinical Data: POLYCYTHEMIA; PAIN IN ANKLES AND FEET Comparison: None. Findings: No fractures or dislocations are seen. No bone destruction or erosion is noted. The joint spaces and soft tissues are normal. There is a small plantar spur. XR/XR foot LT min 3V* [id number] Impression: Negative left foot.
--- NOTE | 2020-12-11 16:59 | XR_ITS ---
WS: [id number] Right ankle, 3 views, 12/11/2020 Clinical Data: POLYCYTHEMIA; PAIN IN ANKLES AND FEET Comparison: None. Findings: No fractures or dislocations are seen. The ankle mortise is normal. The talus and calcaneus are unrem arkable. No soft tissue swelling over the medial or lateral malleolus is seen. XR/XR ankle RT min 3V* [id number] Impression: Negative right ankle.
--- NOTE | 2020-12-14 10:49 | ONC FU_ITS ---
Dr. Montemayor Patient Follow-Up Note Patient: Jeimy Brownlee Unit #: [id number]: [id number] Dicatated By: Jonathan Montemayor M.D.Date of Visit:Dec 11, 2020 Onc Med Follow-up/Prog Note Chief Complaint: Polycythemia. 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 In February 2016 she was found on a routine followup to have a significantly elevated platelet count at 763,000. The remainder of her CBC was significant for normal hemoglobin at 12.9 g with hematocrit 40.2%. The red cell indices were in the low normal range. The white blood cell count was mildly elevated at 12,600 with the diff showing 68% segs, 21% lymphs, 6% monocytes, 4% eosinophils, and 1% basophils. I had seen her initially on 04/14/2016. At that time her CBC showed hemoglobin mildly elevated at 14.6 g with hematocrit 45%. The white blood cell count was 13,700 and the platelet count was 938,000. The red cell indices were at the lower limit of normal. Her chemistry studies did show evidence of iron deficiency with serum iron low at 20 mcg/dL and transferrin saturation 4.2%. The erythropoietin level was low at 5 mIU/mL. The JAK2 V617F mutation was positive at 28.4%. Overall, the findings were consistent with polycythemia rubra vera with iron deficiency. She then began treatment with hydroxyurea in April 2016. She had a good response, and she tolerated it well. I had last seen her for a follow-up visit in May 2017. At that point her blood counts remained adequately controlled and she appeared to be doing well clinically. For reasons unclear to me she was then lost to follow-up. Her other medical illnesses include hypertension, hyperlipidemia, GERD, degenerative arthritis, and osteoporosis. She also has chronic insomnia, and she has a history of superficial bladder cancer. She has a history of smoking 1 pack of cigarettes daily for 50 years. INTERIM HISTORY: She was seen by Amelia Ferrara at the [facility] on 11/01/2019. Her CBC at that time showed significantly elevated hemoglobin at 18.4 g with hematocrit 56.8%. The white blood cell count was elevated at 17,000 and the platelet count was significantly elevated at 1,503,000. Comprehensive metabolic profile showed normal renal function with BUN 15 and creatinine 0.68 mg/dL. Bilirubin and liver enzymes were normal. I had seen on 11/06/2019. She was phlebotomized, and she then restarted hydroxyurea at 500 mg twice daily. Her repeat CBC on 12/04/2019 showed hemoglobin down somewhat, though still elevated, at 16.3 g with hematocrit 51.2%. The white blood cell count was 10,600 and the platelet count was 1,109,000. She did have another phlebotomy. She continued hydroxyurea 500 mg bid. As of her follow-up visit in June 2020 her blood counts had become mildly elevated, and I did have her increase her hydroxyurea dosage to 1500 mg daily on Mondays, Wednesdays, and Fridays. She continued 1000 mg all other days. She is seen for a follow-up visit. She has not been feeling is good. Her main complaint is that she has developed pain and swelling in both feet, left more so than right. At times the pain has been significant enough that she cannot walk, and she says she has been spending most of her time in a recliner. Her ECOG score is 3. She has good appetite. She is not having fever, night sweats, or itching. She always has sinus drainage, and she does have some cough. She does not complain of shortness of breath or chest pain. She has constipation, she is managing with hydration and occasional use of milk of magnesia. She has no other GI or complaints. She has no other joint or bone pain. She does not complain of headache or dizziness. She has no numbness/paresthesia or other focal neurologic symptoms. Medications: Citalopram Hydrobromide 1 (20 mg) Tablet Oral daily, Hydroxyurea 1 Capsule (of 500 mg) Oral b.i.d., Lisinopril 1 (10 mg) Tablet Oral daily, Pantoprazole Sodium 1 (40 mg) Tablet, enteric coated Oral daily Allergies: No Known Allergies. Vital Signs: Performed on Dec 11, 2020 14:26 Height - 66.00 in Weight - 89.6 lbs (LOW) BSA - 1.42 sq.m BMI - 14.46 (LOW) Temperature - 98.2 F (LOW) Pulse - 116 /min (HIGH) Respiration - 18 /min BP - 114/66 mm(hg) O2 Sat - 98 % Pain - 0 Fatigue - 5 Physical Examination: Constitutional - She appears generally weak, Eyes - Sclerae nonicteric. Conjunctivae clear, ENMT - No lesions noted in the oral cavity, Hematologic/Lymphatic - No cervical, clavicular, or axillary adenopathy, Respiratory - Lungs sound clear with diminished air movement bilaterally, Cardiovascular - Heart rhythm is regular. There is no murmur, gallop, or rub noted, Abdomen - Soft. Liver and spleen are not enlarged. There is no abdominal mass or ascites noted and there is no inguinal adenopathy, Extremities - There is mild edema involving the left ankle and foot. There is no associated erythema. I am not able to palpate pedal pulses, but both feet are warm to touch, Neurologic - No focal neurologic deficits noted. Lab/Imaging: Test performed on Dec 11, 2020 15:00 LDH (Total) 177 U/L Sodium 135 mmol/L TSH 2.24 uIU/mL Uric Acid 2.7 mg/dL Potassium 3.9 mmol/L Chloride 97 mmol/L CO2 26 mmol/L Anion Gap 15.9 BUN 15 mg/dL Creatinine 0.4 mg/dL Cr Clearance (Est) 71.9700 mL/min Glucose 94 mg/dL Osmolality - Calculated 281 mOsm/kg Calcium 9.3 mg/dL Protein, Total 7.1 g/dL Albumin 3.3 g/dL Globulin 3.8 g/dL Bilirubin, Total 0.2 mg/dL ALT (SGPT) 8 U/L AST (SGOT) 16 U/L Alkaline Phosphatase 112 IU/L ESR (Sed Rate) 118 mm/hr WBC 5.2 10 3/uL RBC 2.42 10 6/uL HGB 10.6 g/dL HCT 31.3 % MCV 129.3 fl MCH 43.8 pg MCHC 33.9 g/dL RDW 18.1 % Platelet Count 343 10 3/cmm MPV 9.7 fL Neutrophils 3.37 10 3/uL Lymphocytes 1.4 10 3/uL Monocytes 0.4 10 3/uL Eosinophils 0.0 10 3/uL Basophils 0.0 10 3/uL Neutrophil % 64.8 % Lymphocyte % 26.5 % Monocyte % 7.5 % Eosinophil % 0.0 % Basophils % 0.4 % NRBC % 0.4 % Problem List: 1. Polycythemia rubra vera, JAK2 mutation positive. 2. She has a history of superficial bladder cancer with multiple previous TURBT procedures and intravesical BCG. 3. Hypertension. 4. Hyperlipidemia. 5. GERD. 6. Degenerative arthritis/degenerative disease of the spine. 7. Osteoporosis. 8. Chronic insomnia. 9. Depression. 10. Nicotine dependence (cigarettes). Problems Addressed with this Encounter and Plan: 1. Patient with polycythemia rubra vera, JAK2 mutation positive, initially diagnosed in February 2016. She responded well to treatment with hydroxyurea, but she stopped taking it following her visit in May 2017. As of October 2019 her blood counts had become significantly elevated. She also had a very significant decline in her performance status. At that point she was phlebotomized and she also restarted hydroxyurea at 500 mg twice daily. During follow-up her blood counts had come down gradually and by March 2020 she had just a slightly elevated platelet count. However, since then her hemoglobin/hematocrit levels have become mildly elevated again and there has been increase in both the white blood cell count and the platelet count. Her clinical status, though, remained stable. As of her follow-up visit in June 2020 her blood counts had become mildly elevated and I did have her increase her daily hydroxyurea dosage to 1500 mg on Mondays, Wednesdays, and Fridays and 1000 mg daily all other days. She has now become mildly anemic. As such, the hydroxyurea dosage will be reduced back to 500 mg twice daily. Blood counts will be monitored monthly. She will be scheduled for a follow-up visit in 3 months. 2. She has developed swelling in her ankles and feet, and she is having significant pain associated with it. The cause is uncertain. I will first check x-rays of both ankles and feet I also will include sed rate and uric acid level with her laboratory studies today. She will have further evaluation as indicated. Signed By: Jonathan Montemayor M.D. <<Signature on File>>
== END 2020-12-11 13:53 | disposition home or self-care (01) ==
PROVIDERS: PCP Nurse Practitioner Family; Visit Provider Internal Medicine Medical Oncology
DX: D45 Polycythemia vera (principal); D64.9 Anemia, unspecified; M25.472 Effusion, left ankle; M25.471 Effusion, right ankle; M79.89 Other specified soft tissue disorders
CPT/HCPCS: 36415; 73610; 73630; 80053; 83615; 84443; 84550; 85025; 85651; 99214